=== PATIENT | female | born 2000 | race American Indian/Alaskan Native ===

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

== ENCOUNTER 2021-12-13 13:33 | Emergency (ER) | payer OTHER ==
[~2021-12-13] VITALS: Ht 147.3 cm; Wt 46.9 kg
[2021-12-13 13:36] VITALS: TEMP 98
[2021-12-13 15:15] LABS: PLATELET COUNT 267 K/uL (152-353)
[2021-12-13 15:25] LABS: POTASSIUM 4.9 mmol/L (3.6-5.2)
[2021-12-13] MEDS ORDERED: PHEN100T3 PO (16:40)
[2021-12-13] MEDS ORDERED: 904272561 PO (16:40)
[2021-12-13 16:56] VITALS: BP 95/57
== END 2021-12-13 17:24 | disposition home or self-care (01) ==
LOC: ED 13:33
PROVIDERS: Emergency Medicine Emergency Medical Services
DX: N39.0 Urinary tract infection, site not specified (principal); N83.291 Other ovarian cyst, right side
CPT/HCPCS: 36415; 80048; 81002; 81015; 81025; 85027; 87077; 87086; 87088; 87186; 96360; 96365; 96375; 99284; J0696; J2270; J2405

== ENCOUNTER 2022-06-02 16:11 | Emergency (ER) | payer OTHER ==
[~2022-06-02] VITALS: Ht 147.3 cm; Wt 47.6 kg
[~2022-06-02 16:11] MED LIST: 904272561 PO; PHEN100T3 PO
[2022-06-02 16:18] VITALS: TEMP 99.5
[2022-06-02 17:22] VITALS: BP 91/60
== END 2022-06-02 17:23 | disposition home or self-care (01) ==
LOC: ED 16:11
DX: B34.9 Viral infection, unspecified (principal); Z20.822 Contact with and (suspected) exposure to COVID-19
CPT/HCPCS: 87502; 87635; 87651; 99283; U0003